=== PATIENT | female | born 1975 | race African-American/Black ===

== ENCOUNTER 2016-12-15 16:17 | Emergency (ER) | payer SELFPAY ==
[2016-12-15 16:27] VITALS: BP 132/81; PULSE 87; TEMP 98.3; BMI 28.8
--- NOTE | 2016-12-15 17:39 | PDOC ---
History of Present Illness - General Chief Complaint: Pain Stated Complaint: PAIN/LUPUS Time Seen by Provider: 12/15/16 17:21 Past History - Past Medical History Allergies/Adverse Reactions: Allergies Allergy/AdvReac Type Severity Reaction Status Date / Time clarithromycin [From Biaxin] Allergy Verified 12/15/16 16:27 Penicillins Allergy Verified 12/15/16 16:27 Home Medications: Ambulatory Orders Lisinopril [Prinivil -] 40 mg PO DAILY #30 tablet 05/25/13 Hydroxychloroquine Sulfate [Plaquenil] 500 mg PO 07/07/16 Ibuprofen [Motrin -] 600 mg PO TID #21 tablet 07/07/16 Levofloxacin [Levaquin -] 500 mg PO DAILY #6 tablet 07/07/16 HTN: Yes Psychiatric Problems: Yes (DEPRESSION) Other medical history: LUPUS - Surgical History Abdominal Surgery: Yes (CYSTS REMOVED FORM UTERUS AND CERVIX, NO MENSES SINCE) - Psycho/Social/Smoking Cessation Hx Anxiety: No Suicidal Ideation: No Smoking Status: Yes Smoking History: Never smoked Have you smoked in the past 12 months: Yes Number of Cigarettes Smoked Daily: 5 'Breaking Loose' booklet given: 05/21/16 Hx Alcohol Use: Yes (SOCIAL) Drug/Substance Use Hx: No Substance Use Type: None *Physical Exam - Vital Signs Last Vital Signs Temp Pulse Resp BP Pulse Ox 98.3 F 87 20 132/81 99 12/15/16 16:23 12/15/16 16:23 12/15/16 16:23 12/15/16 16:23 12/15/16 16:23 *DC/Admit/Observation/Transfer Diagnosis at time of Disposition: Chronic pain - Discharge Dispostion Disposition: ELOPED
== END 2016-12-15 18:28 | disposition left against medical advice (07) ==
LOC: JER 16:17 → JERFT 16:17 → JER 18:28
DX: Z53.21 Procedure and treatment not carried out due to patient leaving prior to being seen by health care provider (principal)
CPT/HCPCS: 99281-25

== ENCOUNTER 2016-12-25 06:18 | Emergency (ER) | payer SELFPAY ==
[2016-12-25 06:55] VITALS: TEMP 97.8; BMI 28.8
--- NOTE | 2016-12-25 07:10 | PDOC ---
History of Present Illness - General History Source: Patient Exam Limitations: No Limitations - History of Present Illness Initial Comments: 12/25/16 07:22 The patient is a 41 year old female, with a significant past medical history of HTN, Lupus, and depression, who presents to the emergency department with generalized pain and possible lupus flare up since yesterday. The patient reports yesterday having pain/stiffness in her bilateral feet that soon radiated to her legs and lower back. She notes this morning having stiffness/ pain in her bilateral UEs, with continued pain/stiffness in her LEs and back. The patient ranks her pain a 8/10 in pain intensity. She notes about a couple of days ago having an adverse fish allergy, after her co-worker made fish in her office. She denies eating any fish, but notes having both nausea /vomiting for about 2 days with mild abdominal pain. She attributes this allergen reaction to her recent flare up. She denies recent fevers, chills, or dizziness. She denies recent diarrhea or constipation. She denies recent dysuria, frequency, urgency or hematuria. She denies recent chest pain or shortness of breath. Allergies: See Nursing Notes Past surgical history: Abdominal Surgery (cyst removed) Social history: Nonsmoker. Denies EtOH use and recreational drug use. <Norm Braun - Last Filed: 12/25/16 10:52> <Mick Colvin - Last Filed: 12/25/16 12:53> - General Chief Complaint: Pain, Acute Stated Complaint: PAIN/LUPUS Time Seen by Provider: 12/25/16 07:09 Past History <Norm Braun - Last Filed: 12/25/16 10:52> - Past Medical History HTN: Yes Psychiatric Problems: Yes (DEPRESSION) - Surgical History Abdominal Surgery: Yes (CYSTS REMOVED FORM UTERUS AND CERVIX, NO MENSES SINCE) - Immunization History Immunization Up to Date: No - Psycho/Social/Smoking Cessation Hx Anxiety: No Suicidal Ideation: No Smoking Status: Yes Smoking History: Never smoked Have you smoked in the past 12 months: Yes Number of Cigarettes Smoked Daily: 5 'Breaking Loose' booklet given: 05/21/16 Hx Alcohol Use: No Drug/Substance Use Hx: No Substance Use Type: None <Mick Colvin - Last Filed: 12/25/16 12:53> - Past Medical History Allergies/Adverse Reactions: Allergies Allergy/AdvReac Type Severity Reaction Status Date / Time clarithromycin [From Biaxin] Allergy Verified 12/25/16 07:09 egg Allergy Verified 12/25/16 07:09 Fish Containing Products Allergy Verified 12/25/16 07:09 Penicillins Allergy Verified 12/25/16 07:09 tomato Allergy Verified 12/25/16 07:09 Home Medications: Ambulatory Orders Lisinopril [Prinivil -] 40 mg PO DAILY #30 tablet 05/25/13 Hydroxychloroquine Sulfate [Plaquenil] 500 mg PO DAILY 07/07/16 Oxycodone HCl/Acetaminophen [Percocet 5-325 mg Tablet] 1 - 2 tab PO Q6H PRN #20 tab MDD 8 12/25/16 Prednisone [Deltasone -] 60 mg PO DAILY #100 tablet 12/25/16 Review of Systems - Review of Systems Constitutional: No: Chills, Fever HEENTM: No: Nose Congestion, Throat Swelling Respiratory: No: Cough, Shortness of Breath Cardiac (ROS): No: Chest Pain, Lightheadedness ABD/GI: Yes: Nausea, Vomiting. No: Constipated, Diarrhea : No: Dysuria, Frequency Musculoskeletal: Yes: Muscle Pain Neurological: No: Headache All Other Systems: Reviewed and Negative <Mick Colvin - Last Filed: 12/25/16 12:53> *Physical Exam - Vital Signs Last Vital Signs Temp Pulse Resp BP Pulse Ox 97.8 F 80 18 125/93 100 12/25/16 06:52 12/25/16 06:52 12/25/16 06:52 12/25/16 06:52 12/25/16 06:52 - Physical Exam Comments: 12/25/16 07:23 GENERAL: The patient is awake, alert, and fully oriented, in no acute distress. HEAD: Normal with no signs of trauma. EYES: Pupils equal, round and reactive to light, extraocular movements intact, sclera anicteric, conjunctiva clear with no pallor. ENT: Ears normal, nares patent, oropharynx clear without exudates. Moist mucous membranes. NECK: Normal range of motion, supple without lymphadenopathy, JVD, or masses. LUNGS: Breath sounds equal, clear to auscultation bilaterally. No wheeze/ crackles. HEART: Regular rate and rhythm, normal S1 and S2 without murmur or rub. ABDOMEN: Focal LLQ tenderness with some guarding but no rebound. Soft/ nondistended. BS wnl. No palpable masses. No hepatosplenomegaly. EXTREMITIES: Normal range of motion, no edema. No clubbing or cyanosis. No cords , erythema, or tenderness. NEUROLOGICAL: Cranial nerves II through XII grossly intact. Normal speech, normal gait. PSYCH: Normal mood, normal affect. SKIN: Warm, Dry, normal turgor, no rashes or lesions noted. <Norm Braun - Last Filed: 12/25/16 10:52> - Vital Signs Last Vital Signs Temp Pulse Resp BP Pulse Ox 97.8 F 80 18 125/93 100 12/25/16 06:52 12/25/16 06:52 12/25/16 06:52 12/25/16 06:52 12/25/16 06:52 <Mick Colvin - Last Filed: 12/25/16 12:53> ED Treatment Course - LABORATORY CBC & Chemistry Diagram: 12/25/16 07:56 12/25/16 07:56 - RADIOLOGY Radiograph Interpretation: 12/25/16 10:53 ABDOMEN & PELVIS CT W/O CONTR impressions reported by : No evidence of appendicitis or acute pathology within the abdomen or pelvis. <Norm Braun - Last Filed: 12/25/16 10:52> - LABORATORY CBC & Chemistry Diagram: 12/25/16 07:56 12/25/16 07:56 <Mick Colvin - Last Filed: 12/25/16 12:53> Medical Decision Making - Medical Decision Making 12/25/16 07:25 A portion of this note was documented by scribe services under my direction. I have reviewed the details of the note, within reason, and agree with the documentation with the following case summary and management plan written by me. 41-year-old female with history of lupus and hypertension presents with one day of worsening myalgia/arthralgia typical of her lupus exacerbations, feels it was triggered by exposure to fish at work, to which she is ALLERGIC. Has had intermittent vomiting since then but no localized or persistent abdominal pain, no f/c, no diarrhea/constipation. no urinary complaints. myalgias began in the lower extremities, now also in her back and arms, typical of her usual flares. no devine. VSS, afebrile well appearing neck supple s1s2, rrr, ctab soft/nd. consistently tender with guarding in the RLQ, no rebound. no cvat joints wnl, no swelling/erythema/warmth, FROM, nvi 41-year-old female with lupus presents with myalgias in the setting of vomiting. Presentation does seem consistent with a lupus flare, possibly triggered by an allergen exposure, however will need to rule out infectious process, particularly in light of the vomiting and right lower quadrant tenderness. Low suspicion that this represents appendicitis given no pain, but could have ileitis or colitis or adenitis. Rule out urinary process, amenorrhea for over one year. Labs, urinalysis and urine IV fluids, nausea medicine, pain medicine Will obtain CT of the abdomen and pelvis Reassess 12/25/16 08:52 Labs are within normal limits, no leukocytosis. Urinalysis is clear, urine is negative. Pain only slightly controlled with morphine, will attempt Toradol. CT of the abdomen and pelvis Reassess 12/25/16 12:12 CT of the abdomen and pelvis shows no acute pathology, tenderness is resolved, pain improved after NSAIDs and Valium. Agrees with discharge plan, prefers discharge. Will take steroid course, follow-up with Dr. Livingston and her primary physician. <Mick Colvin - Last Filed: 12/25/16 12:53> *DC/Admit/Observation/Transfer - Attestations Scribe Attestion: 12/25/16 07:23 Documentation prepared by Norm Braun, acting as medical hospital sales for Mick Colvin MD. <Norm Braun - Last Filed: 12/25/16 10:52> <Mick Colvni - Last Filed: 12/25/16 12:53> Diagnosis at time of Disposition: SLE exacerbation Nausea and vomiting Qualifiers: Vomiting type: unspecified Vomiting Intractability: non-intractable Qualified Code(s): R11.2 - Nausea with vomiting, unspecified - Discharge Dispostion Disposition: HOME Condition at time of disposition: Improved - Prescriptions Prescriptions: Prednisone [Deltasone -] 60 mg PO DAILY #100 tablet Oxycodone HCl/Acetaminophen [Percocet 5-325 mg Tablet] 1 - 2 tab PO Q6H PRN #20 tab MDD 8 PRN Reason: Pain - Referrals Referrals: Blu Livingston MD [Staff Physician] - - Patient Instructions Printed Discharge Instructions: DI for Systemic Lupus Erythematosus Additional Instructions: Activity as tolerated. Stay hydrated. Ibuprofen 600 mg every 6-8 hours as needed for moderate pain, Percocet as prescribed as needed for severe pain. Percocet can make you lightheaded, so take proper precautions. Prednisone as prescribed, speak to your primary physician if a taper required. Continue your medications as previously prescribed by your physician. You should follow up with Dr. Livingston as soon as possible regarding today's emergency department visit. Return to the emergency department for any new or concerning symptoms, particularly persistent or worsening pain, fevers or chills, persistent vomiting or abdominal pain. - Post Discharge Activity Work/School Note: Back to Work
[2016-12-25] MEDS ORDERED: ONDANSETRON 4 MG/2 ML VIAL IVPB ONE (07:20)
[2016-12-25] MEDS ORDERED: morphine CARPU-JECT 4 MG/1 ML DISP.SYRIN IVPUSH ONE (07:20)
[2016-12-25] MEDS ORDERED: SODIUM CHLORIDE 1,000 ML IV ONE (07:20)
[2016-12-25] MEDS ORDERED: methylPREDNISolone NA SUCC 125 MG/2 ML VIAL IVPB ONE (07:23)
[2016-12-25] MEDS ORDERED: ONDANSETRON 4 MG/2 ML VIAL ONE (07:50)
[2016-12-25] MEDS ORDERED: morphine CARPU-JECT 4 MG/1 ML DISP.SYRIN ONE (07:50)
[2016-12-25] MEDS ORDERED: methylPREDNISolone NA SUCC 125 MG/2 ML VIAL ONE (07:50)
[2016-12-25 08:05] LABS: BASOPHIL 1.2 % (0-2.0); EOSINOPHIL 3.4 % (0-4.5); MCH 28.6 pg (25.7-33.7); MCHC 33.7 g/dl (32.0-36.0); MEAN CELL VOLUME 84.8 fl (80-96); MEAN PLT VOLUME 8.5 fl (7.5-11.1); PLATELET COUNT 223 K/MM3 (134-434); RDW 14.2 % (11.6-15.6); WHITE BLOOD COUNT 4.8 K/mm3 (4.0-10.0)
[2016-12-25 08:29] LABS: ALBUMIN 3.6 g/dl (3.4-5.0); ANION GAP 4 (8-16); BILIRUBIN,TOTAL 0.3 mg/dL (0.2-1.0); CALCIUM 9.2 mg/dL (8.5-10.1); CO2 26 mmol/L (21-32); COCKROFT - GAULT 123.3605; CREATININE 0.8 mg/dL (0.55-1.02); GLUCOSE,RANDOM 82 mg/dL (74-106); SGOT/AST 14 U/L (15-37); SGPT/ALT 18 U/L (12-78); TOT PROT 7.2 g/dl (6.4-8.2)
[2016-12-25 08:30] LABS: ALK PHOS 60 U/L (45-117)
[2016-12-25 08:34] LABS: URINE APPEARANCE CLEAR; URINE BILIRUBIN NEGATIVE (NEGATIVE); URINE BLOOD NEGATIVE (NEGATIVE); URINE COLOR YELLOW; URINE GLUCOSE (UA) NEGATIVE (NEGATIVE); URINE KETONE NEGATIVE (NEGATIVE); URINE LEUK ESTERASE NEGATIVE (NEGATIVE); URINE NITRITE NEGATIVE (NEGATIVE); URINE PROTEIN NEGATIVE (NEGATIVE); URINE UROBILINOGEN NEGATIVE E.U./dl (0.2-1.0)
[2016-12-25] MEDS ORDERED: KETOROLAC TROMETHAMINE 30 MG/1 ML VIAL IVPUSH ONE (08:51)
[2016-12-25] MEDS ORDERED: KETOROLAC TROMETHAMINE 30 MG/1 ML VIAL ONE (08:53)
[2016-12-25] MEDS ORDERED: diazePAM 5 MG TABLET PO ONE (10:27)
[2016-12-25] MEDS ORDERED: diazePAM 5 MG TABLET ONE (11:23)
[2016-12-25 11:36] VITALS: BP 132/62; PULSE 63
== END 2016-12-25 12:58 | disposition home or self-care (01) ==
LOC: JER 06:18
PROC: 3E0333Z Introduction of Anti-inflammatory into Peripheral Vein, Percutaneous Approach (ICD-10-PCS; principal; 2016-12-25)
PROC: 3E033NZ Introduction of Analgesics, Hypnotics, Sedatives into Peripheral Vein, Percutaneous Approach (ICD-10-PCS; 2016-12-25)
PROC: 3E033GC Introduction of Other Therapeutic Substance into Peripheral Vein, Percutaneous Approach (ICD-10-PCS; 2016-12-25)
PROC: 3E0337Z Introduction of Electrolytic and Water Balance Substance into Peripheral Vein, Percutaneous Approach (ICD-10-PCS; 2016-12-25)
DX: M32.8 Other forms of systemic lupus erythematosus (principal); R11.2 Nausea with vomiting, unspecified; I10 Essential (primary) hypertension; F32.9 Major depressive disorder, single episode, unspecified; F17.210 Nicotine dependence, cigarettes, uncomplicated
CPT/HCPCS: 36415; 74176-TC; 80053; 81003; 83690; 84703; 85025; 99282-25

== ENCOUNTER 2017-07-30 07:22 | Day surgery (SDC) | payer OTHER ==
[2017-07-24 17:28] VITALS: BMI 27.3
--- NOTE | 2017-07-30 08:29 | HP ---
Satellite [facility] - Chief Complaint History Source: Patient - Past Medical History Allergies/Adverse Reactions: Allergies Allergy/AdvReac Type Severity Reaction Status Date / Time clarithromycin [From Biaxin] Allergy Verified 07/30/17 08:05 egg Allergy Verified 07/30/17 08:05 Fish Containing Products Allergy Verified 07/30/17 08:05 Penicillins Allergy Verified 07/30/17 08:05 tomato Allergy Verified 07/30/17 08:05 ...LMP: 06/11/13 - Current Medications Current Medications: Home Medications Medication Instructions Recorded Lisinopril [Prinivil -] 40 mg PO DAILY #30 tablet 05/25/13 Hydroxychloroquine Sulfate 500 mg PO DAILY 07/07/16 [Plaquenil] Naproxen Sodium [Aleve] 220 mg PO PRN 06/17/17 Satellite Physical Exam - Physical Examination Vital Signs: Vital Signs Period Temp Pulse Resp BP Sys/Osorio Pulse Ox Last 24 Hr 97.4 F 75 20 144/96 100 Extremities: Other (+ joint line tenderness) Satellite Impression/Plan - Impression/Plan Impression: internal derangement left knee Operative Procedure: arthroscopy left knee Date to be Performed: 07/30/17
[2017-07-30] MEDS ORDERED: LIDOCAINE 1%/EPI 1:100000 (20 ML MULTI DOSE VIAL) INF ONE (08:46)
[2017-07-30] MEDS ORDERED: BUPIVACAINE HCL/PF 0.5% (5MG/ML) 10 ML VIAL IJ ONE (09:13)
--- NOTE | 2017-07-30 09:14 | OP ---
Operative Note - Note: Operative Date: 07/30/17 ([facility]) Pre-Operative Diagnosis: left knee internal derangement Operation: left knee arthroscopy with PLM Post-Operative Diagnosis: Same as Pre-op Surgeon: Sean Sun Anesthesiologist/CURING ROOM SUPERVISOR: Gabe Herzog Anesthesia: General, Local Specimens Removed: shavings Estimated Blood Loss (mls): 5 Operative Report Dictated: Yes
[2017-07-30] MEDS ORDERED: LABETALOL HCL 5 MG/1 ML (100MG/20 ML VIAL) ONE (09:32)
--- NOTE | 2017-07-30 09:55 | OP ---
DATE OF OPERATION: 07/30/2017 PREOPERATIVE DIAGNOSIS: Internal derangement, left knee. POSTOPERATIVE DIAGNOSIS: Internal derangement, left knee. PROCEDURE: Arthroscopy, left knee, with partial lateral meniscectomy. SURGICAL ATTENDING: Sean Sun MD ANESTHESIA: LMA. CLOSURE: 4-0 nylon. COMPLICATIONS: None. CONDITION: To recovery room in stable condition. DESCRIPTION OF PROCEDURE: Patient was taken to the operating room on July 30, 2017. General anesthesia with LMA was administered by the anesthesiologist. The left lower extremity was prepped and draped in the usual sterile fashion. The medial and lateral infrapatellar portal sites were infiltrated with 1% Xylocaine with epinephrine. Both portals were then made with a 15-blade followed by a blunt trocar. The scope trocar was placed up in the inferolateral portal up into the suprapatellar pouch. The knee was then inflated with a cocktail of 10 mL of 1% Xylocaine, 10 mL of 0.5% Marcaine, and 20 mL of arthroscopic saline. After the solution was allowed to sit in the knee was allowed to sit in the knee for a few minutes, the procedure was performed. The scope was placed through the sheath up into the suprapatellar pouch. The pouch was visualized to be clean. The medial and lateral gutters were visualized to be clean. The undersurface of the patella and trochlea were visualized to be intact. With valgus stress on the knee, the medial compartment was entered. The medial meniscus was visualized and found to be intact. The medial femoral condyle was run and found to be intact, as was the medial tibial plateau. At 90 degrees, the ACL was visualized, probed, and found to be intact. In the figure 4 position, the lateral compartment was entered. Lateral meniscus was found to have a complex tear of its anterior horn extending back to its mid portion. This was debrided back to smooth, stable meniscal tissues with meniscal biter and arthroscopic shaver. An ArthroCare device was used to cauterize any bleeders on the meniscal margin. The posterior horn was found to be intact. The lateral femoral condyle was run and found to be intact, as was the lateral tibial plateau. The knee was irrigated with copious amounts of irrigation. The portals were closed using 4-0 nylon. Prior to closure, 20 mL of 0.5% Marcaine was infused into the knee for postoperative analgesia. Sterile pressure dressing was placed over the knee. Patient awakened from anesthesia and transferred to recovery in stable condition. No complications. Estimated blood loss negligible. Sherri [id number]
[2017-07-30] MEDS ORDERED: PROMETHAZINE HCL 25 MG/1 ML VIAL IVPUSH PRN (10:06)
[2017-07-30] MEDS ORDERED: ONDANSETRON 4 MG/2 ML VIAL IVPUSH PRN (10:06)
[2017-07-30] MEDS ORDERED: LACTATED RINGERS SOLUTION 1,000 ML IV SCH (10:15)
[2017-07-30 10:17] VITALS: TEMP 98
[2017-07-30 10:37] VITALS: BP 135/91; PULSE 65
--- NOTE | 2017-07-31 13:23 | PATH ---
Surgical Pathology Report Patient Name: ERIS HODGE [facility]. Rec. #: [id number] /Age/Gender: 1975 (Age: 42) / F Account: [id number] Location: [facility] SURGICAL Taken: 07/30/2017 Received: 07/30/2017 Reported: 07/31/2017 Physicians: Sean Sun M.D. Specimen(s) Received LEFT KNEE SHAVINGS Clinical History Internal derangement, meniscus tear left knee Final Diagnosis KNEE, LEFT, ARTHROSCOPIC SHAVING: FIBROCARTILAGE WITH MYXOID DEGENERATIVE CHANGES, ALONG WITH PORTIONS OF SYNOVIUM AND HYALINE CARTILAGE. CRYSTALS MORPHOLOGICALLY CONSISTENT WITH PSEUDOGOUT (CPPD) PRESENT. Electronically Signed Pablo Coates M.D. Gross Description Received in formalin, labeled "left knee shavings," is a 2.5 x 2.5 x 0.3 cm. aggregate of fajardo-yellow soft tissue fragments. A ambulatory service representative portion is submitted in one cassette. /07/30/201707/30/2017
== END 2017-07-30 10:20 | disposition home or self-care (01) ==
LOC: JASU-SURG 07:22
PROVIDERS: ATTEND Orthopaedic Surgery
PROC: 0SBD4ZZ Excision of Left Knee Joint, Percutaneous Endoscopic Approach (ICD-10-PCS; principal; 2017-07-30 08:45)
DX: M23.242 Derangement of anterior horn of lateral meniscus due to old tear or injury, left knee (principal)
CPT/HCPCS: 88304-TC; 94760